=== PATIENT | female | born 1960 | race Caucasian/White ===

== ENCOUNTER 2016-10-12 10:34 | Emergency (ER) | payer OTHER ==
[2016-10-12 10:41] VITALS: RESP 18
[2016-10-12] MEDS ORDERED: ORPHENADRINE 30 MG/ML 2 ML VIAL IM STA (10:49)
[2016-10-12] MEDS ORDERED: KETOROLAC 30 MG/ML 1 ML VIAL IM STA (10:49)
--- NOTE | 2016-10-12 10:55 | ED ---
Neck Injury/Pain HPI - General Chief Complaint: Neck Pain/Injury Stated Complaint: neck and rt arm pain Time Seen by Provider: 10/12/16 10:44 Source: RN notes reviewed, old records reviewed Mode of arrival: ambulatory Limitations: no limitations - History of Present Illness Initial Comments: 56-year-old female presents emergency room chief complaint of right-sided neck pain for the past 5 days. She reports that she woke up on Saturday with the pain. She went to urgent care on Saturday and was prescribed muscle relaxants and anti-inflammatory medicine. Patient reports that is continued a painful. 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 She reports over the past few days she's noticed that her she's had some numbness and tingling radiates down her right arm. She denies any recent trauma or falls. Denies any fever or chills.Patient denies any recent fever, chills, shortness of breath, chest pain, back pain, abdominal pain, nausea vomiting, numbness or tingling, dysuria or hematuria, constipation or diarrhea, headaches or visual changes, or any other current symptoms - Related Data Home Medications Medication Instructions Recorded Confirmed Naproxen [Naprosyn] 500 mg PO Q12HR PRN 10/12/16 10/12/16 tiZANidine HCL [Zanaflex] 4 mg PO Q8H PRN 10/12/16 10/12/16 Previous Rx's Medication Instructions Recorded Acetaminophen-Codeine 300-30mg 1 tab PO Q4H PRN #12 tablet 10/12/16 [Tylenol #3] Allergies Allergy/AdvReac Type Severity Reaction Status Date / Time No Known Allergies Allergy Verified 10/12/16 11:00 Review of Systems ROS Statement: Those systems with pertinent positive or pertinent negative responses have been documented in the HPI. ROS Other: All systems not noted in ROS Statement are negative. Past Medical History Past Medical History: No Reported History History of Any Multi-Drug Resistant Organisms: None Reported Additional Past Surgical History / Comment(s): cataract Past Psychological History: No Psychological Hx Reported Smoking Status: Current every day smoker Past Alcohol Use History: None Reported Past Drug Use History: None Reported General Exam - General Exam Comments Initial Comments: Well-appearing 56-year-old female. No acute distress. Limitations: no limitations General appearance: alert, in no apparent distress Head exam: Present: atraumatic, normocephalic, normal inspection Eye exam: Present: normal appearance, PERRL, EOMI. Absent: scleral icterus, conjunctival injection, periorbital swelling ENT exam: Present: normal exam, mucous membranes moist Neck exam: Present: normal inspection, tenderness (right trapezius and SCM). Absent: meningismus, lymphadenopathy Respiratory exam: Present: normal lung sounds bilaterally. Absent: respiratory distress, wheezes, rales, rhonchi, stridor Cardiovascular Exam: Present: regular rate, normal rhythm, normal heart sounds. Absent: systolic murmur, diastolic murmur, rubs, gallop, clicks GI/Abdominal exam: Present: soft, normal bowel sounds. Absent: distended, tenderness, guarding, rebound, rigid Extremities exam: Present: normal inspection, full ROM, normal capillary refill. Absent: tenderness, pedal edema, joint swelling, calf tenderness Right Upper Arm exam: Present: normal inspection, full ROM Elbow exam: Present: normal inspection, full ROM Forearm Wrist exam: Present: normal inspection, full ROM Hand Wrist exam: Present: normal inspection, full ROM, other (Patient reports paresthesias over the distal middle finger.) Back exam: Present: normal inspection Neurological exam: Present: alert, oriented X3, CN II-XII intact Psychiatric exam: Present: normal affect, normal mood Skin exam: Present: warm, dry, intact, normal color. 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 She will did see urgent care was prescribed tizanidine and naproxen. She reports is not helping with the pain. Pt given Toradol and Norflex.Thoracic and cervical xray obtained. Cervical spine x-ray shows Disc space tearing present C5 through C6 and posterior the C6- C7. Prevertebral space is normal. There is straightening of the cervical spine and lateral injection. Posterior spinal laminar line is intact. Noticed some calcification likely within the carotid bifurcation. Odontoid is visualized and appears normal. The overall impression is mild degenerative disc disease in the lower cervical spine. This is early Dr. Campbell. Patient states thoracic spine shows evidence of scoliosis. The exam is stable from 03/21/2010. Patient will be discharged with referrals for orthopedic and media marketing specialist. Discussed that we will write the patient for short course of pain medication. She was also given a note for work. Return parameters were discussed. - Radiology Data Radiology results: report reviewed Disc space tearing present C5 through C6 and posterior the C6-C7. Prevertebral space is normal. There is straightening of the cervical spine and lateral injection. Posterior spinal laminar line is intact. Noticed some calcification likely within the carotid bifurcation. Odontoid is visualized and appears normal. The overall impression is mild degenerative disc disease in the lower cervical spine. This is early Dr. Campbell. Patient states thoracic spine shows evidence of scoliosis. The exam is stable from 03/21/2010. Disposition Clinical Impression: Neck pain, Arm paresthesia, right Disposition: HOME SELF-CARE Condition: Good Additional Instructions: Patient advised to follow-up with media marketing specialist and primary care physician. Patient is advised to take all medications that are previously prescribed. Recommending adding a massage and applying heat over the neck and shoulder. Return to the emergency department if any alarming signs or symptoms occur. Prescriptions: Acetaminophen-Codeine 300-30mg [Tylenol #3] 1 tab PO Q4H PRN #12 tablet PRN Reason: Pain Referrals: None,Stated [Primary Care Provider] - 1-2 days Isatu Arana MD [STAFF PHYSICIAN] - 1-2 days Gabriela Leonard DO [Doctor of Osteopathic Medicine] - 1-2 days Time of Disposition: 11:55
--- NOTE | 2016-10-12 11:39 | XR ---
EXAMINATION TYPE: XR cervical spine limited DATE OF EXAM: 10/12/2016 COMPARISON: NONE HISTORY: Pain right arm TECHNIQUE: 3 view cervical spine FINDINGS: Disc space narrowing is present C5-C6 and posteriorly at C6-7. The prevertebral space is no rmal. There is straightening of the cervical spine in the lateral projection. Posterior spinal lamell ar line is intact. Note is made of some calcification likely within the carotid bifurcations. Odontoi d as visualized appears unremarkable. Tip is limited with overlying occiput. IMPRESSION: 1. Mild degenerative disc changes lower cervical spine
--- NOTE | 2016-10-12 11:42 | XR ---
EXAMINATION TYPE: XR thoracic spine 2V DATE OF EXAM: 10/12/2016 COMPARISON: 03/21/2010 HISTORY: Pain TECHNIQUE: Three-view thoracic spine FINDINGS: Scoliosis is present with convexity to the left centered at approximately T10 with a compen satory scoliosis in the upper thoracic spine with a convexity to the right centered at T5. There are 12 thoracic type vertebral bodies. The pedicles are intact. Vertebral body heights appear p reserved. Disc heights appear preserved. IMPRESSION: 1. Scoliosis. 2. Exam stable from 03/21/2010
[2016-10-12 12:07] VITALS: BP 142/63; PULSE 71; TEMP 98.2
== END 2016-10-12 12:08 | disposition home or self-care (01) ==
LOC: EC 10:34
DX: M54.2 Cervicalgia (principal); R20.2 Paresthesia of skin; M41.9 Scoliosis, unspecified; F17.200 Nicotine dependence, unspecified, uncomplicated
CPT/HCPCS: 72070; 72040; 99284; 96372 ×2; J2360; J1885